=== PATIENT | female | born 1960 | race Caucasian/White ===

== ENCOUNTER 2024-11-28 21:50 | Emergency (ER) | payer MEDICARE, OTHER, SELFPAY ==
[2024-11-28 21:53] VITALS: BP 100/65; PULSE 109; RESP 17; TEMP 36.6; O2SAT 95; BMI 39.1
--- NOTE | 2024-11-28 22:21 | XR_ITS ---
Examination: CT brain head without contrast. 2-D sagittal coronal reconstructions Date and time of exam:November 28, 2024 11:29 PM INDICATIONS: Syncopal episodes today CTDI: vol (mGy):52.1 DLP: (mGycm):1083 Technique: Multiple CT axial sections of the brain have been obtained, 5 mm slice thickness. Contrast has not been administered. 2-D sagittal, coronal reconstructions have been obtained Low dose protocols were performed. One or more of the following dose reduction techniques were used; automated exposure control, adjustment of the mA and/or KV according to patient size, use of iterative reconstruction technique. Findings: No significant ventricular enlargement. Intra-axial or extra-axial hemorrhage density is not seen. No mass effect or midline shift Basal cisterns are not remarkable. Fourth ventricle is midline. Cranial vault intact. Impression: Negative for acute hemorrhage, mass effect or midline shift Advise clinical correlation and follow-up accordingly
--- NOTE | 2024-11-28 22:21 | EKG_ITS ---
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
--- NOTE | 2024-11-28 22:22 | PD.EDRME ---
Rapid Medical Screening Exam RME Arrival date/time: 11/28/24 21:50 This is a case of 64-year-old female who came in due to syncopal episode history of present illness started 1 hour prior to arrival in the emergency room patient was in the bathroom felt dizzy and generally weak and had syncopal episode no chest pain no shortness of breath Chief Complaint: Syncope / Near Syncope Time Seen by Provider: 11/28/24 22:21
[2024-11-28 22:57] VITALS: BP 124/81; PULSE 110; RESP 16; O2SAT 96
[2024-11-28 23:07] LABS: Basophils # (Auto) 0.1 Thou/mm3 (0.0-0.2); Basophils % (Auto) 0 % (0-2.5); Eosinophils # (Auto) 0.1 Thou/mm3 (0.0-0.5); Eosinophils % (Auto) 0 % (0-10); Hematocrit 42.9 % (36.0-46.0); Hemoglobin 14.4 g/dL (12.0-16.0); Immature Granulocytes Auto 0.16 Thou/mm3 (0.00-0.00); Lymphocytes # (Auto) 3.0 Thou/mm3 (1.0-4.8); Lymphocytes % (Auto) 11 % (10-50); Mean Corpuscular HGB Conc 33.6 g/dl (31.0-37.0); Mean Corpuscular Hemoglobin 31.0 pg (25.0-35.0); Mean Corpuscular Volume 92 fL (80-100); Monocytes # (Auto) 1.4 Thou/mm3 (0.0-0.8); Monocytes % (Auto) 5 % (0-12); Neutrophils # (Auto) 22.5 Thou/mm3 (1.8-7.7); Neutrophils % (Auto) 83 % (37-80); Nucleated Red Blood Cell # 0.00 Thou/mm3 (0.00-0.00); Nucleated Red Blood Cell % 0 /100 WBC (0); Platelet Count 315 Thou/mm3 (140-440); RDW Standard Deviation 44.3 fL (36.4-46.3); Red Blood Count 4.65 Miln/mm3 (4.00-5.20); White Blood Count 27.2 Thou/mm3 (3.6-11.0)
[2024-11-28 23:28] LABS: Alanine Aminotransferase 18 U/L (10-49); Albumin, Serum 4.1 gm/dL (3.4-4.8); Albumin/Globulin Ratio 1.7 (1.2-2.2); Alkaline Phosphatase 57 U/L (46-116); Anion Gap 13 (7-16); Aspartate Amino Transferase 14 U/L (0-34); BUN/Creatinine Ratio 11 Ratio (12-20); Bilirubin,Total 0.4 mg/dL (0.3-1.2); Blood Urea Nitrogen 15 mg/dL (9-23); Calcium 9.6 mg/dL (8.3-10.6); Calcium (Corrected) 9.6 mg/dL (8.5-10.1); Carbon Dioxide 19.2 mMol/L (20.0-31.0); Chloride 109 mMol/L (98-107); Creatinine (Component) 1.4 mg/dL (0.6-1.3); Estimated Creatinine Clearance 52.1 mL/min (>60); Globulin 2.4 gm/dL (2.3-3.5); Glucose 217 mg/dL (74-106); Osmolality,Calculated 289 (275-295); Potassium 3.8 mMol/L (3.4-5.1); Sodium 141 mMol/L (136-145); Total Protein 6.5 gm/dL (5.7-8.2); Troponin I < 0.020 ng/mL (0.0-0.045); eGFR 42 See Note
[2024-11-29 01:00] VITALS: BP 154/83; PULSE 100; RESP 20; TEMP 36.9; O2SAT 98
--- NOTE | 2024-11-29 01:32 | PD.EDSYNC ---
ED Syncope RME/HPI General Chief Complaint: Syncope / Near Syncope Stated Complaint: SYNCOPE EPISODE Time Seen by Provider: 11/28/24 22:21 Arrival date/time: 11/28/24 21:50 RME / HPI RME / HPI narrative: 11/28/24 21:50 This is a case of 64-year-old female who came in due to syncopal episode history of present illness started 1 hour prior to arrival in the emergency room patient was in the bathroom felt dizzy and generally weak and had syncopal episode no chest pain no shortness of breath ------ Dr. Barnes?s Main ED Evaluation: 64yo female coming in after having an episode of diarrhea and while on the commode, she became diaphoretic, lightheaded/dizzy. Patient assisted herself down to the floor and had a possible brief syncopal episode. No incontinence or seizure activity. Patient spontaneously recovered, was assisted to an upright position, and was transported here. No chest pain or shortness of breath. No anteceding illness. Denies any previous similar episodes. PMH DMII, no underlying heart disease or arrhythmias. PSH appendectomy and hysterectomy. Nonsmoker. No alcoholism or illicit drug abuse. NKA. Related Data Previous Rx's ?Medication ?Instructions ?Recorded ciprofloxacin HCl 500 mg tablet 500 mg PO BID #10 tabs 11/29/24 (Cipro) hyoscyamine sulfate 0.125 mg 0.125 mg PO TID PRN cramping #10 11/29/24 tablet (Levsin) tabs metronidazole 500 mg tablet 500 mg PO Q8H 7 days #21 tabs 11/29/24 promethazine 12.5 mg tablet 12.5 mg PO TID nausea #14 tabs 11/29/24 Allergies Allergy/AdvReac Type Severity Reaction Status Date / Time No Known Allergies Allergy Verified 11/28/24 21:56 Review of Systems Review of Systems Systems Reviewed: All systems reviewed, normal except as documented Past Medical History Past Medical History CARDIAC: Negative Congestive Heart Failure RESPIRATORY: Negative Chronic Obstructive Pulmonary Disease (COPD) GENITOURINARY: Negative Renal Disease ENDOCRINE: Positive Diabetes Mellitus Type 2; Negative Diabetes Mellitus Type 1 ED Exam Narrative Physical exam: GENERAL APPEARANCE: alert and oriented x 4, well-developed, well-nourished, no acute distress VITALS: All vitals were reviewed and the pulse ox is 98% on room air, which is normal according to my interpretation. HEENT: Normocephalic, atraumatic; pupils equal, round, reactive to light; EOMI; mucous membranes pink, moist; oropharynx clear NECK: Supple LUNGS: CTABL; no wheezes, no rales, no rhonchi HEART: Mildly tachycardic with HR 110, regular rhythm; normal S1, S2; no murmurs ABDOMEN: non distended; normal BS; soft, no tenderness, no guarding, no rebound; no masses, no organomegaly, no hernia BACK: no CVA tenderness EXTREMITIES: atraumatic; no edema NEUROLOGIC: awake; alert and oriented x4; cranial nerves II-XII grossly intact; no focal sensory or motor deficits PSYCHIATRIC: appropriate mood and affect SKIN: warm, dry, normal color; no rashes Course Course Course Narrative: CXR is ordered for determining the etiology of syncope. Quality Measures none Orders Category Date Time Status EKG (ED ONLY) *Do not use* NOW Care 11/28/24 22:[address] head/brain wo con Stat Exams 11/28/24 22:21 Completed EKG (ED Only) Stat Exams 11/28/24 22:21 Draft XR chest 1V portable Stat Exams 11/29/24 02:53 Taken Blood Culture (Lab) Stat Lab 11/29/24 03:48 Received CBC Stat Lab 11/28/24 22:53 Completed Comprehensive Metabolic Panel Stat Lab 11/28/24 22:53 Completed Thyroid Stimulating Hormone Stat Lab 11/28/24 22:53 Completed Troponin I Stat Lab 11/28/24 22:53 Completed Urinalysis Stat Lab 11/29/24 01:55 Completed Levofloxacin/D5w 500 mg Ivpb [Levaquin Ivpb] Med 11/29/24 06:16 Active 500 mg in 100 ml IV X1 Sodium Chloride 0.9% 1000 ml [Ns] 1,000 ml Med 11/29/24 01:50 Discontinued IV 999 mls/hr Sodium Chloride 0.9% 1000 ml [Ns] 1,000 ml Med 11/29/24 02:55 Discontinued IV 999 mls/hr cefTRIAXone/D5w 1gm IV premix [Rocephin/D5w 1gm IV Med 11/29/24 02:52 Discontinued premix] 1 gm in 50 ml IV X1 Vital Signs Vital signs: Vital Signs Temperature 97.9 F 11/28/24 21:53 Pulse Rate 109 H 11/28/24 21:53 Respiratory Rate 17 11/28/24 21:53 Blood Pressure 100/65 11/28/24 21:53 Pulse Oximetry (%) 95 11/28/24 21:53 Oxygen Delivery Method Room Air 11/28/24 21:53 Syncope MDM Narrative MDM Narrative:: Scribe Attestation: 11/29/24 - Paige Hooper am scribing for and in the presence of Dr. Barnes. 64yo female coming in after having an episode of diarrhea and while on the commode, she became diaphoretic, lightheaded/dizzy. Patient assisted herself down to the floor and had a possible brief syncopal episode. No incontinence or seizure activity. Please see PE findings. Lab markers demonstrate WBC 27 with left shift, no bandemia. Chemistries demonstrate Cl 109, CO2 19, Creatinine 1.4 with eGFR 24. Troponin negative. CXR without definite infiltrate, effusion, or pneumothorax. Patient hydrated with saline, cultures obtained. Patient received empiric antibiotics, remained hemodynamically stable, and expressed wishes to defer CT scan at this time. Given benign abdominal exam, will concede. Patient will be placed on dual antibiotics and maintained on clear liquid diet for 24 hours with close follow-up with her PMD. Dx: gastroenteritis, vasovagal syncope Patient data External records reviewed:: [facility] previous records (Per chart review, patient has no previous ED visits or admissions to this facility.) Clinical information provided by:: patient Social determinants that could affect healthcare access:: none Patient has the following chronic illnesses:: DM How is presenting disease/condition affected by chronic disease/condition?: uneffected by Evaluation data The following diagnostics were reviewed and interpreted by me:: lab results, radiology exam(s) and EKG tracing(s) Lab and/or radiology exams considered but not ordered:: none Interpretation Summary: EKG done at 2253, sinus rhythm, rate of 96, no acute pathological ST segment changes, no ectopy, RBBB, left axis deviation, according to my interpretation. [facility] Report Signed Patient: ROXANA ARCHER KARLOS [facility]. Record#: [id number] Birthdate: 1960 Age/Sex: 64 / F Location: [facility] Attending Dr: Ordering Physician: Amanda Bray Date of Service: 11/28/24 Procedure(s): CT head/brain wo con Accession Number(s): [id number] cc: Tucker Jimenez MD; Amanda Bray~ Examination: CT brain head without contrast. 2-D sagittal coronal reconstructions Date and time of exam:November 28, 2024 11:29 PM INDICATIONS: Syncopal episodes today CTDI: vol (mGy):52.1 DLP: (mGycm):1083 Technique: Multiple CT axial sections of the brain have been obtained, 5 mm slice thickness. Contrast has not been administered. 2-D sagittal, coronal reconstructions have been obtained Low dose protocols were performed. One or more of the following dose reduction techniques were used; automated exposure control, adjustment of the mA and/or KV according to patient size, use of iterative reconstruction technique. Findings: No significant ventricular enlargement. Intra-axial or extra-axial hemorrhage density is not seen. No mass effect or midline shift Basal cisterns are not remarkable. Fourth ventricle is midline. Cranial vault intact. Impression: Negative for acute hemorrhage, mass effect or midline shift Advise clinical correlation and follow-up accordingly Dictated By: Tucker Jimenez MD Signed By: <Electronically signed by Tucker Jimenez MD in OV> 11/28/24 7618 Medications / Prescriptions Medications or Prescriptions considered but not ordered:: none Medication administrations:: Medication Administration History Levofloxacin/Dextrose (Levaquin Ivpb) 500 mg in 100 mls @ 100 mls/hr IV X1 ONE Stop: 11/29/24 07:15 Discontinued Medications Sodium Chloride (Ns) 1,000 mls @ 999 mls/hr IV .Q1H1M ONE Stop: 11/29/24 02:50 Last Infusion: 11/29/24 03:12 Dose: Infused Documented By: Admin: 11/29/24 02:16 Dose: 999 mls/hr Documented By: CCT Ceftriaxone Sodium/Dextrose (Rocephin/D5w 1gm Iv Premix) 1 gm in 50 mls @ 100 mls/hr IV X1 ONE Stop: 11/29/24 03:21 Last Infusion: 11/29/24 04:50 Dose: Infused Documented By: Admin: 11/29/24 04:20 Dose: 100 mls/hr Documented By: CCT Sodium Chloride (Ns) 1,000 mls @ 999 mls/hr IV .Q1H1M ONE Stop: 11/29/24 03:55 Last Infusion: 11/29/24 04:20 Dose: Infused Documented By: Admin: 11/29/24 03:12 Dose: 999 mls/hr Documented By: CCT see above Consultations Consultation(s) initiated? (list below): No Diagnosis Syncope Differential Diagnosis: syncope due to orthostatic hypotension, vasovagal syncope, dehydration and other (electrolyte abnormality) Most likely diagnosis given after review of the tests above:: see clinical impression below Admission Indicated Admission indicated?: not indicated Admission Request Was there a request for admission?: No Disposition Plan Disposition Plan: other (specify) (Signed out to Dr. Noriega at [address] abdomen pelvis.) Discharge Plan Plan Patient Disposition: HOME (Self Care) Discharge Disposition comment: Stable Prescriptions/Referrals Prescriptions/Med Rec: New ciprofloxacin HCl [Cipro] 500 mg tablet 500 mg PO BID Qty: 10 0RF metronidazole 500 mg tablet 500 mg PO Q8H 7 Days Qty: 21 0RF hyoscyamine sulfate [Levsin] 0.125 mg tablet 0.125 mg PO TID PRN (Reason: cramping) Qty: 10 0RF promethazine 12.5 mg tablet 12.5 mg PO TID MDD 3 tabs Qty: 14 0RF Referrals: No Primary/Family,Physician [Primary Care Provider] - In 1 week Problem List Clinical Impression: Vasovagal syncope, Colitis Patient/Caregiver Discharge Instructions Discharge Activity: activity as tolerated Diet Instructions: Clear liquid diet x 24 to 48 hours. Education Materials: Understanding Colitis, ED Fainting, Vagal Reaction Additional Instructions: Clear liquid diet x 24 to 48 hours. Medication as directed. Follow-up with primary care doctor in 3 to 5 days for repeat laboratory markers and reevaluation. Return if persistently high fevers escalating abdominal pain or persistently worsening illness. Print Language: Greenlandic Stand Alone Forms: Sofia Award Info., Patient Portal Info Letter
[2024-11-29] MEDS: SODIUM CHLORIDE 0.9% 1000 ML 1,000 ML 999 ML IV ×2 (02:16→03:12)
[2024-11-29 02:19] LABS: Collection Type, Urine Clean Catch
[2024-11-29 02:33] LABS: Bacteria,Urine 1+; Bilirubin,Urine Negative (Negative); Blood,Urine Trace (Negative); Clarity,Urine Turbid (Clear/Hazy); Color,Urine Yellow (Lt Yel-Yel); Glucose, Urine Trace (Negative); Hyaline Casts,Urine 4 /hpf (0-1); Ketones,Urine Negative (Negative); Leukocyte Esterase,Urine Positive (Negative); Nitrite,Urine Positive (Negative); PH,Urine 5.5 (5.0-7.0); Protein,Urine 1+ (Neg - Trace); RBC,Urine 7 /hpf (0-3); Specific Gravity,Urine 1.030 (1.001-1.035); Squamous Epithelial Cell,Urine 5 /hpf (0-5); Urobilinogen,Urine 2.0 mg/dL (0.0-1.0); WBC,Urine 22 /hpf (0-5)
[2024-11-29 02:44] LABS: Thyroid Stimulating Hormone 3.57 uIU/mL (0.55-4.78)
--- NOTE | 2024-11-29 02:53 | XR_ITS ---
Examination: AP chest single view. TECHNIQUE: AP portable upright chest single view Date and time: November 29, 2024, 0254 hours. INDICATIONS: Syncopal episode today, leukocytosis. FINDINGS: Mild prominence of the ventricle. No pneumonia or pulmonary edema. The osseous structures are intact. IMPRESSION: No active disease.
[2024-11-29 03:15] VITALS: BP 146/56; PULSE 80; RESP 18; TEMP 36.5; O2SAT 97
[2024-11-29] MEDS: cefTRIAXone/D5w 1gm IV premix 1 GM/50 ML BAG IV (04:20)
[2024-11-29 06:00] VITALS: BP 120/67; PULSE 81; RESP 16; TEMP 36.9; O2SAT 95
[2024-11-29] MEDS: LEVOFLOXACIN/D5W 500 MG IVPB 500 MG/100 ML BAG 100 MG IV (06:44)
== END 2024-11-29 07:56 | disposition home or self-care (01) ==
PROVIDERS: Nurse Practitioner Family; Emergency Provider Emergency Medicine
DX: R55 Syncope and collapse (principal); K52.9 Noninfective gastroenteritis and colitis, unspecified; E11.9 Type 2 diabetes mellitus without complications
CPT/HCPCS: 36415; 70450; 71045; 80053; 81001; 84443; 84484; 85025; 87040; 93005; 96361; 96365; 96366; 99285; J0696; J1956; J7030